=== PATIENT | male | born 1965 ===

== ENCOUNTER 2023-01-29 12:35 | Emergency (ER) | payer OTHER, SELFPAY ==
[2023-01-29 12:39] VITALS: BP 123/73; PULSE 96; RESP 18; TEMP 37; O2SAT 98; BMI 28.2
--- NOTE | 2023-01-29 12:40 | ED_ITS ---
HPI - General Adult General Chief complaint: Urogenital-Male Stated complaint: bladder infection/ throat infection Time Seen by Provider: 01/29/23 12:43 Source: patient Mode of arrival: ambulatory Limitations: no limitations History of Present Illness HPI narrative: 57 yo male here with complaints of penile discharge/dysuria x 1month. Was tested for STI's a month ago and negative reportedly. Prior to this patient was having sexual intercourse with a female partner. Intermittent condom use. Now having sore throat since yesterday which began after eating pizza. No cough, fever, rash, abdominal pain, vomiting, diarrhea, back pain, neck pain or neck stiffness. Related Data Previous Rx's Medication Instructions Recorded doxycycline monohydrate 100 mg 100 mg PO BID #14 tabs 01/29/23 tablet Allergies Allergy/AdvReac Type Severity Reaction Status Date / Time No Known Allergies Allergy Unverified 06/05/20 17:43 Review of Systems Review of Systems: Yes all other systems are reviewed and are negative Constitutional: Constitutional: Reports no additional constitutional complaints, Denies body ache(s), Denies chills, Denies fever(s), Denies headache(s) and Denies weakness Eyes: Eyes: Reports no additional eye complaints and Denies change in vision ENT: Reports system reviewed and no additional complaints, except as documented, Denies dizziness, Denies headache(s), Denies nasal congestion, Denies nasal discharge, Denies neck pain and Reports sore throat Cardiovascular: Cardiovascular: Reports no additional cardiovascular complaints, Denies chest pain, Denies leg edema and Denies dyspnea Respiratory: Respiratory: Reports no additional respiratory complaints, Denies cough and Denies dyspnea Gastrointestinal: Gastrointestinal: Reports no additional gastrointestinal complaints, Denies abdominal pain, Denies diarrhea, Denies nausea and Denies vomiting Genitourinary: Genitourinary: Reports dysuria, Reports penile discharge and Denies urinary incontinence Musculoskeletal: Musculoskeletal: Reports no additional musculoskeletal complaints, Denies back pain, Denies arthralgias, Denies joint swelling, Denies neck pain, Denies numbness and Denies tingling Integumentary/Breasts: Skin/Breast: Reports system reviewed and no additional complaints, except as docu and Denies rash Neurologic: Reports system reviewed and no additional complaints, except as documented, Denies dizziness, Denies headache(s), Denies numbness, Denies tingling and Denies weakness [facility] Past Medical History Attestation statement: The following information was validated with the patient. Source: old records reviewed and nursing notes reviewed Social History Social History Alcohol intake: never Smoked in Last 30 Days: No Use of substances other than those prescribed or required for medical reasons: No Advance Directives: No Advance Directives Information Provided: No Physical Exam ED Vital Signs: Vital Signs - 24 hr 01/29/23 12:39 01/29/23 14:30 Temperature 98.6 F 98.2 F Pulse Rate 96 68 Respiratory Rate 18 16 Blood Pressure 123/73 103/58 L Pulse Oximetry 98 98 Oxygen Delivery Method Room Air Room Air BMI result Body Mass Index 28.2 Const General: cooperative, healthy appearing, comfortable and no acute distress Orientation/consciousness: patient oriented x3 Limitations: no limitations HENMT Head: Yes normal to inspection Ears: hearing grossly normal bilaterally Throat: Yes posterior oropharynx normal, Yes tonsils normal and Yes uvula midline Eyes General: appearance normal, both eyes and all related structures Neck Neck: Yes normal visual inspection, Yes full ROM, Yes no lymphadenopathy and Yes no meningeal signs Chest Chest palpation & inspection: normal inspection of the chest Resp Effort & Inspection: normal respiratory effort Auscultation: clear to auscultation bilaterally Cardio Rate: regular rate Rhythm: regular rhythm Peripheral pulses: Peripheral pulses 2+ throughout GI Inspection: Yes normal to inspection Palpation (GI): Soft to palpation and nontender Other: Deferred exam General: Yes no CVA tenderness Back/Spine/Pelvis Back: no CVA tenderness Thoracic/Lumbar Spine: thoracic and lumbar spine normal to inspection Skin General skin exam: no rashes or lesions noted Neuro General: patient oriented x3, moves all extremities and no meningeal signs Cognition (Neuro): normal cognition Gait exam (Neuro): Normal gait present Extrem General: Yes normal to inspection, Yes no pedal edema and Yes no calf tenderness Course Course Course Narrative: 57-year-old male presents for evaluation of burning with urination for 1 month. He also complains of a sore throat since yesterday. On exam, oropharynx is larg reyes unremarkable. Ordered strep, UA, STD testing. Medications Administered Discontinued Medications Generic Name Dose Route Start Last Admin Trade Name Freq PRN Reason Stop Dose Admin Ceftriaxone Sodium 500 mg/ 0 mg 01/29/23 14:16 01/29/23 14:29 Lidocaine HCl 1 ml IM 01/29/23 14:17 1 kit ONCE ONE Administration Medical Decision Making Medical Decision Making [facility] Narrative: 57-year-old male here with 1 month of penile discharge and dysuria. Also sore throat after eating pizza last night Posterior pharynx is normal in appearance. There is no exudate, swelling or erythema to suggest pharyngitis. Will send strep testing, gonorrhea, chlamydia testing and UA Patient be treated prophylactically with ceftriaxone 500 mg IM, home with doxycycline Differential Diagnosis Differential Diagnoses: The differential diagnosis associated with the presentation includes STI, UTI Lab Data [facility] Lab Attestation statement: I reviewed the patient's lab results. Labs: Lab Results 01/29/23 01/29/23 Range/Units 13:22 13:45 Urine Color Yellow Urine Appearance Clear Urine pH 5.5 (5.0-9.0) Ur Specific [employer] >= 1.030 H (1.005-1.025) Urine Protein Trace (Neg-Trace) mg/dL Urine Glucose (UA) Negative (Negative) mg/dL Urine Ketones Trace (Negative) mg/dL Urine Blood Moderate (2+) H (Negative) Urine Nitrite Negative (Negative) Ur Leukocyte Esterase Negative (Negative) Urine RBC 0-2 (0-2) /HPF Urine WBC 0-5 (0-5) /HPF Ur Squamous Epith Cells 0-2 (0-2) /HPF Urine Bacteria None Seen (None Seen) Hyaline Casts 0-2 (0-2) /LPF S. pyogenes GrpA MAXIM Negative (Negative) Discharge Plan Discharge Clinical Impression: Dysuria Patient Disposition: Home, Self-Care Instructions: Dysuria (ED) Additional Instructions: We sent testing for gonorrhea and chlamydia. These test results take 1-2 days to come back. We will call you if they are positive. We are treating you prophylactically for sexually transmitted diseases and he received an injection of an antibiotic while you were here in the emergency room. Please take the antibiotics as prescribed. Avoid unprotected sex for 7 days Prescriptions: New doxycycline monohydrate 100 mg tablet 100 mg PO BID Qty: 14 0RF Referrals: Physician,Unknown J [Primary Care Provider] - 1 week (as needed your PCP) Interventions: ED Discharge Assessment Last Done: 01/29/23 14:40 Discharge Date/Time: 01/29/23 14:41
--- NOTE | 2023-01-29 13:12 | PC.NURSE ---
Patient presents after a month of occasional pain in his groin with some discharge from his penis as well as a sore throat for the past day that is worse when eating. Patient saw his PCP for the initial groin pain and wasn't prescribed anything and was told everything is fine. Patient is sitting calm and cooperative in his room, lung sounds CTA, nothing noted in mouth or upper throat at this time.
[2023-01-29 13:40] LABS: IDNOW Serial# 08D9AD1C; Strep A Nucleic Acid Negative (Negative)
[2023-01-29 14:02] LABS: Appearance Urine Clear; Color Urine Yellow; Glucose Urine UA Negative (Negative); Leukocyte Esterase Urine Negative (Negative); Nitrite Urine Negative (Negative); PH 5.5 (5.0-9.0); Specific Gravity - Urine >= 1.030 (1.005-1.025); UMIC TRIGGER UACC YES; Urine Blood Moderate (2+) (Negative); Urine Ketones Trace mg/dL (Negative); Urine Protein Trace mg/dL (Neg-Trace)
[2023-01-29 14:16] LABS: Bacteria Urine None Seen (None Seen); Hyaline Casts Urine 0-2 /LPF (0-2); RBC Urine 0-2 /HPF (0-2); Squamous Epithelial Cell Urine 0-2 /HPF (0-2); WBC Urine 0-5 /HPF (0-5)
[2023-01-29] MEDS: cefTRIAXone sodium 500 MG, Lidocaine HCl 1 % MPF 1 ML IM (14:29)
[2023-01-29 14:30] VITALS: BP 103/58; PULSE 68; RESP 16; TEMP 36.8; O2SAT 98
[2023-01-29 15:58] LABS: CT PCR NOT DETECTED (Not Detect.); NG PCR NOT DETECTED (Not Detect.)
== END 2023-01-29 14:41 | disposition home or self-care (01) ==
PROVIDERS: Physician Assistant; Emergency Provider Emergency Medicine
DX: R30.0 Dysuria (principal); J02.9 Acute pharyngitis, unspecified
CPT/HCPCS: 0353U; 81001; 87651; 96372; 99284; J0696